=== PATIENT | female | born 1970 | race Hispanic/Latino ===

== ENCOUNTER 2019-09-12 14:06 | Emergency (ER) | payer BC ==
[~2019-09-12] VITALS: Ht 167.6 cm; Wt 78.9 kg
[2019-09-12 15:11] LABS: BILIRUBIN,URINE NEGATIVE (NEGATIVE); CLARITY,URINE SL CLOUDY (CLEAR); COLOR,URINE YELLOW (YELLOW); KETONES,URINE NEGATIVE (NEGATIVE); LEUKOCYTE ESTERASE ,URINE NEGATIVE (NEGATIVE); NITRITE,URINE NEGATIVE (NEGATIVE); PREGNANCY TEST, URINE NEGATIVE (NEGATIVE); PROTEIN,URINE DIPSTICK NEGATIVE (NEGATIVE); URINE UROBILINOGEN 0.2 mg/dL (0.2 - 1)
[2019-09-12 15:23] LABS: BACTERIA,URINE FEW /HPF; EPITHELIAL CELLS,URINE FEW /LPF
[2019-09-12] MEDS ORDERED: SODIUM CHLORIDE 0.9% 1000ML 1,000 ML IV STA (15:26)
[2019-09-12] MEDS ORDERED: ONDANSETRON HCL INJ 2MG/ML 2ML 2 MG/ML VIAL IV STA (15:26)
[2019-09-12 16:13] LABS: BASOPHILS # (AUTO) 0.1 (0.0-0.1); BASOPHILS % 0.5 % (0.0-1.0); EOSINOPHILS # (AUTO) 0.2 (0.0-0.4); EOSINOPHILS % 1.4 % (0.0-6.0); HEMATOCRIT 44.7 % (34.2-44.1); LYMPHOCYTES # (AUTO) 4.8 (1.0-3.2); MEAN CORPUSCULAR HGB CONC 35.8 g/dL (31-35); MEAN CORPUSCULAR VOLUME 86.6 fL (81-99); MONOCYTES # (AUTO) 0.8 (0.2-0.8); MONOCYTES % 7.8 % (4.4-11.3); NEUTROPHILS % 46.1 % (38.7-80.0); PLATELET COUNT 265 x10e3/uL (140-360); RED BLOOD COUNT 5.16 x10e6/uL (3.6-5.1); RED CELL DISTRIBUTION WIDTH 11.8 % (11.7-14.4)
[2019-09-12 16:25] LABS: ANION GAP 11.5 mmol/L (8-16); BLOOD UREA NITROGEN 7 mg/dL (7-26); BUN/CREATININE RATIO 9 (6-25); CALCIUM 8.8 mg/dL (8.4-10.2); CARBON DIOXIDE 24 mmol/L (22-29); CHLORIDE 106 mmol/L (98-107); CREATININE, SERUM 0.74 mg/dL (0.57-1.11); EST GLOMERULAR FILTRATION RATE > 60 ML/MIN (60-); GLUCOSE 234 mg/dL (74-118); POTASSIUM 3.5 mmol/L (3.5-5.1); SODIUM 138 mmol/L (136-145)
[2019-09-12] MEDS ORDERED: IOPAMIDOL 370 MG/ML 200 ML INFUS..BTL INJ ONE (18:02)
[2019-09-12] MEDS ORDERED: SODIUM CHLORIDE 0.9% 50ML 50 ML ONE (18:02)
--- NOTE | 2019-09-12 18:29 | Diagnostic Imaging Report ---
EXAM: CT Abdomen and Pelvis WITH contrast INDICATION: abd pain COMPARISON: None. TECHNIQUE: Abdomen and pelvis were scanned utilizing a multidetector helical scanner from the lung base to the pubic symphysis after administration of IV contrast. Coronal and sagittal reformations were obtained. Dose modulation, iterative reconstruction, and/or weight based adjustment of the mA/kV was utilized to reduce the radiation dose to as low as reasonably achievable. Routine protocol was performed. Scan was performed when during portal venous phase. IV CONTRAST: 150 mL of Omnipaque 300 ORAL CONTRAST: Water COMPLICATIONS: None RADIATION DOSE: Total DLP: 832.62 mGy-cm Estimated effective dose: (DLP x 0.015 x size factor) mSv CTDIvol has been reviewed. It is below the limits set by the Radiation Protocol Committee (RPC). FINDINGS: LINES and TUBES: None. LOWER THORAX: There is bibasilar atelectasis. HEPATOBILIARY: The liver is diffuse hypodense compared to the spleen, consistent with diffuse hepatic diffuse hepatic steatosis. No focal hepatic lesions. No biliary ductal dilation. GALLBLADDER: There are cholecystectomy clips. SPLEEN: No splenomegaly. PANCREAS: No focal masses or ductal dilatation. ADRENALS: No adrenal nodules KIDNEYS/URETERS: Kidneys enhance symmetrically. No hydronephrosis. No cystic or solid mass lesions. No stones. GI TRACT: No abnormal distention, or evidence of bowel obstruction. There is mild wall thickening of distal sigmoid colon and rectum likely infectious or inflammatory. Appendix is normal. PELVIC ORGANS/BLADDER: Mild bladder wall thickening likely due to cystitis. LYMPH NODES: No lymphadenopathy. VESSELS: Unremarkable. PERITONEUM / RETROPERITONEUM: No free air or fluid. BONES: Unremarkable. SOFT TISSUES: Unremarkable. IMPRESSION: 1. Mild wall thickening of distal sigmoid colon and rectum likely infectious or inflammatory. Recommend follow-up CT to assess resolution and exclude other causes. 2. Bladder wall thickening likely due to cystitis. Signed by: Greyson Cr MD on 09/12/2019 6:26 PM
== END 2019-09-12 19:30 | disposition home or self-care (01) ==
LOC: ER 14:06
DX: R10.11 Right upper quadrant pain (principal); R10.13 Epigastric pain; R11.2 Nausea with vomiting, unspecified; K52.9 Noninfective gastroenteritis and colitis, unspecified; K50.10 Crohn's disease of large intestine without complications; E11.9 Type 2 diabetes mellitus without complications
CPT/HCPCS: 36415; 74177; 80048; 81001; 81025; 83690; 85025; 99281; Q9967

== ENCOUNTER 2021-03-24 16:25 | Emergency (ER) | payer SELFPAY ==
[~2021-03-24] VITALS: Ht 170.2 cm; Wt 70.3 kg
[2021-03-24] MEDS ORDERED: ONDANSETRON HCL INJ 2MG/ML 2ML 2 MG/ML VIAL IV STA (16:41)
[2021-03-24] MEDS ORDERED: SODIUM CHLORIDE 0.9% 1000ML 1,000 ML IV SCH (16:45)
[2021-03-24 16:57] LABS: BASOPHILS % 0.2 % (0.0-1.0); HEMOGLOBIN 16.4 g/dL (12.0-16.0); LYMPHOCYTES # (AUTO) 2.4 (1.0-3.2); MEAN CORPUSCULAR HEMOGLOBIN 30.2 pg (28-32); MEAN CORPUSCULAR HGB CONC 34.9 g/dL (31-35); MEAN CORPUSCULAR VOLUME 86.6 fL (81-99); MONOCYTES # (AUTO) 0.3 (0.2-0.8); MONOCYTES % 3.2 % (4.4-11.3); NEUTROPHILS # (AUTO) 5.6 (2.1-6.9); NEUTROPHILS % 67.2 % (38.7-80.0); PLATELET COUNT 154 x10e3/uL (140-360); RED BLOOD COUNT 5.43 x10e6/uL (3.6-5.1); RED CELL DISTRIBUTION WIDTH 11.9 % (11.7-14.4)
[2021-03-24 17:14] LABS: MAGNESIUM 1.6 MG/DL (1.3-2.1)
[2021-03-24 17:15] LABS: ALBUMIN 3.3 g/dL (3.5-5.0); ALBUMIN/GLOBULIN RATIO 0.8 (0.8-2.0); ANION GAP 21.3 mmol/L (8-16); CALCIUM 8.5 mg/dL (8.4-10.2); CREATININE, SERUM 0.91 mg/dL (0.57-1.11); POTASSIUM 3.3 mmol/L (3.5-5.1)
[2021-03-24 17:17] LABS: CREATINE KINASE 32 IU/L (29-168)
[2021-03-24 17:26] LABS: BAND NEUTROPHILS % (MANUAL) 2 %; LYMPHOCYTES % (MANUAL) 20 % (19-48); MONOCYTES % (MANUAL) 6 % (3.4-9.0); NEUTROPHILS % (MANUAL) 67 % (40-74); PLATELET ESTIMATE ADEQUATE; PLATELET MORPHOLOGY COMMENT NORMAL; RBC MORPHOLOGY COMMENT NORMAL
[2021-03-24 17:42] LABS: ABG HCO3 20 mmol/L (22-26); ABG PCO2 29 mmHg (35-45); ABG PH 7.46 (7.35-7.45); ABG PO2 65 mmHg (80-105); ABG TCO2 21
[2021-03-24 18:19] LABS: CLARITY,URINE HAZY (CLEAR); COLOR,URINE YELLOW (YELLOW)
[2021-03-24 18:21] LABS: LEUKOCYTE ESTERASE ,URINE TRACE (NEGATIVE); NITRITE,URINE POSITIVE (NEGATIVE); PROTEIN,URINE DIPSTICK 2+ (NEGATIVE)
[2021-03-24 18:22] LABS: KETONES,URINE >=160 (NEGATIVE); URINE UROBILINOGEN 1 mg/dL (0.2 - 1); WBC,URINE (MAN) >50 /HPF (0-5)
[2021-03-24 18:23] LABS: AMORPHOUS SEDIMENT,URINE FEW (FEW); AMPHETAMINES SCREEN,URINE NEGATIVE (NEGATIVE); BACTERIA,URINE MANY /HPF; EPITHELIAL CELLS,URINE FEW /LPF; MUCUS,URINE MODERATE (RARE); PHENCYCLIDINE SCREEN,URINE NEGATIVE (NEGATIVE); RBC,URINE 21-50 /HPF (0-5)
[2021-03-24 18:24] LABS: BENZODIAZEPINES SCREEN,URINE NEGATIVE (NEGATIVE)
== END 2021-03-24 18:31 | disposition home or self-care (01) ==
LOC: ER 16:54
DX: R05 Cough (principal); R11.2 Nausea with vomiting, unspecified; U07.1 COVID-19; E11.65 Type 2 diabetes mellitus with hyperglycemia
CPT/HCPCS: 36415; 36600; 71045; 80053; 80307; 81001; 82550; 82553; 82805; 83735; 84484; 84702; 85025; 93005; 99284; J2405; J7030; U0002

== ENCOUNTER 2021-03-30 23:57 | Inpatient (IN) | payer BC, OTHER ==
[~2021-03-30] VITALS: Ht 165.1 cm; Wt 74.4 kg
[~2021-03-30 23:57] MED LIST: STROMECTOL3 MG PO
[2021-03-31] MEDS ORDERED: CEFTRIAXONE 2 GM in SODIUM CHLORIDE 0.9% 100 ML IV ONE (00:15)
[2021-03-31] MEDS ORDERED: DEXAMETHASONE SOD PHOS 10 MG/1 ML VIAL IV ONE (00:15)
[2021-03-31] MEDS ORDERED: DEXAMETHASONE SOD PHOS 10 MG/1 ML VIAL ONE (00:23)
[2021-03-31 00:36] LABS: BASOPHILS % 0.3 % (0.0-1.0); HEMATOCRIT 44.2 % (34.2-44.1); LYMPHOCYTES # (AUTO) 1.4 (1.0-3.2); LYMPHOCYTES % 12.3 % (18.0-39.1); MEAN CORPUSCULAR HEMOGLOBIN 30.1 pg (28-32); MEAN CORPUSCULAR HGB CONC 36.2 g/dL (31-35); MEAN CORPUSCULAR VOLUME 83.2 fL (81-99); MONOCYTES # (AUTO) 0.3 (0.2-0.8); MONOCYTES % 2.4 % (4.4-11.3); NEUTROPHILS # (AUTO) 9.9 (2.1-6.9); NEUTROPHILS % 84.2 % (38.7-80.0); PLATELET COUNT 210 x10e3/uL (140-360); RED BLOOD COUNT 5.31 x10e6/uL (3.6-5.1); RED CELL DISTRIBUTION WIDTH 11.6 % (11.7-14.4)
[2021-03-31 00:45] LABS: ALBUMIN 2.8 g/dL (3.5-5.0); ALBUMIN/GLOBULIN RATIO 0.6 (0.8-2.0); ANION GAP 18.9 mmol/L (8-16); CALCIUM 8.7 mg/dL (8.4-10.2); CREATININE, SERUM 0.81 mg/dL (0.57-1.11)
[2021-03-31 00:49] LABS: POTASSIUM 2.9 mmol/L (3.5-5.1)
[2021-03-31] MEDS ORDERED: POTASSIUM CHLORIDE 20 MEQ TAB CR PO STA (00:49)
[2021-03-31 00:53] LABS: CREATINE KINASE MB 1.1 ng/mL (0-5.0)
[2021-03-31] MEDS ORDERED: ASPIRIN 81 MG CHEW TAB PO ONE (02:15)
[2021-03-31] MEDS ORDERED: ONDANSETRON HCL INJ 2MG/ML 2ML 2 MG/ML VIAL IV PRN (02:15)
[2021-03-31] MEDS ORDERED: SODIUM CHLORIDE FLUSH 10 ML SYR INJ PRN (02:15)
[2021-03-31] MEDS ORDERED: REMDESIVIR IV ONE (02:50)
[2021-03-31] MEDS ORDERED: SODIUM CHLORIDE 0.9% 250ML 250 ML ONE (02:56)
[2021-03-31] MEDS ORDERED: REMDESIVIR 200MG 200 MG IV SCH (03:12)
[2021-03-31 05:45] LABS: BASOPHILS % 0.3 % (0.0-1.0); HEMATOCRIT 41.8 % (34.2-44.1); HEMOGLOBIN 14.6 g/dL (12.0-16.0); LYMPHOCYTES # (AUTO) 0.5 (1.0-3.2); LYMPHOCYTES % 5.8 % (18.0-39.1); MEAN CORPUSCULAR HEMOGLOBIN 29.9 pg (28-32); MEAN CORPUSCULAR HGB CONC 34.9 g/dL (31-35); MEAN CORPUSCULAR VOLUME 85.7 fL (81-99); MONOCYTES # (AUTO) 0.2 (0.2-0.8); MONOCYTES % 3.1 % (4.4-11.3); NEUTROPHILS % 90.2 % (38.7-80.0); PLATELET COUNT 141 x10e3/uL (140-360); RED BLOOD COUNT 4.88 x10e6/uL (3.6-5.1); RED CELL DISTRIBUTION WIDTH 11.8 % (11.7-14.4)
[2021-03-31 06:07] LABS: ALBUMIN 2.5 g/dL (3.5-5.0); ALBUMIN/GLOBULIN RATIO 0.6 (0.8-2.0); ANION GAP 18.9 mmol/L (8-16); CREATININE, SERUM 0.67 mg/dL (0.57-1.11); POTASSIUM 3.9 mmol/L (3.5-5.1)
[2021-03-31] MEDS: ACETAMINOPHEN 325 MG TAB PO PRN (07:15)
[2021-03-31] MEDS ORDERED: DEXAMETHASONE SOD PHOS 10 MG/1 ML VIAL IV SCH (09:00)
[2021-03-31] MEDS: ENOXAPARIN 30 MG/0.3 ML SYR SC SCH ×2 (09:51→17:18)
[2021-03-31] MEDS: ASCORBIC ACID 500 MG TAB PO SCH ×2 (09:51→17:18)
[2021-03-31] MEDS: ZINC SULFATE 50 MG CAP PO SCH (09:51)
[2021-03-31] MEDS ORDERED: DEXTROSE 50% SYRINGE 50 ML IV PRN (12:00)
[2021-03-31] MEDS ORDERED: GUAIFENESIN/CODEINE 5 ML LIQD PO PRN (12:00)
[2021-03-31] MEDS ORDERED: INSULIN GLARGINE 100 UNITS/ML VIAL SQ ONE (12:30)
[2021-03-31] MEDS: DEXMEDETOMIDINE 400MCG/NS100ML 100 ML IV SCH (14:55)
[2021-03-31] MEDS: BENZONATATE 100 MG CAP PO SCH ×2 (14:55→20:07)
[2021-03-31] MEDS ORDERED: SODIUM CHLORIDE 0.9% 50ML 50 ML ONE (16:36)
[2021-03-31] MEDS ORDERED: IOPAMIDOL 370 MG/ML 200 ML INFUS..BTL INJ ONE (16:36)
[2021-03-31] MEDS: INSULIN LISPRO 100 UNIT/1 ML 3ML VIAL SQ SCH ×2 (17:12→20:07)
[2021-03-31] MEDS: CEFTRIAXONE 2 GM in SODIUM CHLORIDE 0.9% 100 ML IV SCH (19:55)
[2021-03-31] MEDS: INSULIN GLARGINE 100 UNITS/ML VIAL SQ SCH ×2 (20:07→20:12)
[2021-03-31] MEDS ORDERED: ENOXAPARIN SOD INJ 40 MG/0.4 ML SYR SC STA (20:37)
[2021-03-31] MEDS ORDERED: ENOXAPARIN INJ 80 MG/0.8 ML SYR SC SCH (21:00)
[2021-03-31] MEDS ORDERED: GABAPENTIN100 MG PO (22:53)
[2021-04-01 02:24] LABS: CREATINE KINASE MB 0.6 ng/mL (0-5.0)
[2021-04-01] MEDS: DEXMEDETOMIDINE 400MCG/NS100ML 100 ML IV SCH ×2 (06:07→13:30)
[2021-04-01 06:28] LABS: BASOPHILS % 0.2 % (0.0-1.0); HEMATOCRIT 40.3 % (34.2-44.1); HEMOGLOBIN 14.2 g/dL (12.0-16.0); LYMPHOCYTES # (AUTO) 1.3 (1.0-3.2); LYMPHOCYTES % 11.9 % (18.0-39.1); MEAN CORPUSCULAR HGB CONC 35.2 g/dL (31-35); MEAN CORPUSCULAR VOLUME 85.2 fL (81-99); MONOCYTES # (AUTO) 0.2 (0.2-0.8); MONOCYTES % 2.2 % (4.4-11.3); NEUTROPHILS # (AUTO) 9.1 (2.1-6.9); PLATELET COUNT 143 x10e3/uL (140-360); RED BLOOD COUNT 4.73 x10e6/uL (3.6-5.1); RED CELL DISTRIBUTION WIDTH 11.6 % (11.7-14.4)
[2021-04-01 07:20] LABS: ALBUMIN 2.3 g/dL (3.5-5.0); ALBUMIN/GLOBULIN RATIO 0.6 (0.8-2.0); ANION GAP 14.4 mmol/L (8-16); CALCIUM 7.8 mg/dL (8.4-10.2); CREATININE, SERUM 0.55 mg/dL (0.57-1.11); POTASSIUM 3.4 mmol/L (3.5-5.1)
[2021-04-01] MEDS: DEXAMETHASONE SOD PHOS 10 MG/1 ML VIAL IV SCH (08:41)
[2021-04-01] MEDS: ENOXAPARIN INJ 80 MG/0.8 ML SYR SC SCH ×2 (08:41→20:34)
[2021-04-01] MEDS: ASCORBIC ACID 500 MG TAB PO SCH ×2 (08:41→18:08)
[2021-04-01] MEDS: BENZONATATE 100 MG CAP PO SCH ×3 (08:41→20:34)
[2021-04-01] MEDS: ZINC SULFATE 50 MG CAP PO SCH (08:41)
[2021-04-01] MEDS: INSULIN LISPRO 100 UNIT/1 ML 3ML VIAL SQ SCH ×4 (08:42→21:00)
[2021-04-01] MEDS: BARICITINIB 2 MG TABLET PO SCH (08:52)
[2021-04-01] MEDS ORDERED: DEXAMETHASONE SOD PHOS 10 MG/1 ML VIAL IV SCH (09:00)
[2021-04-01] MEDS ORDERED: INSULIN GLARGINE 100 UNITS/ML VIAL SQ ONE (10:30)
[2021-04-01] MEDS ORDERED: POTASSIUM CHLORIDE 10MEQ EA PO ONE (10:30)
[2021-04-01] MEDS ORDERED: SODIUM CHLORIDE 0.9% 50ML 50 ML ONE (12:17)
[2021-04-01] MEDS ORDERED: IOPAMIDOL 370 MG/ML 200 ML INFUS..BTL INJ ONE (12:17)
[2021-04-01] MEDS ORDERED: REMDESIVIR 100MG 100 MG IV SCH (14:00)
[2021-04-01] MEDS: ACETAMINOPHEN 325 MG TAB PO PRN (18:24)
[2021-04-01] MEDS: CEFTRIAXONE 2 GM in SODIUM CHLORIDE 0.9% 100 ML IV SCH (20:34)
[2021-04-01] MEDS: INSULIN GLARGINE 100 UNITS/ML VIAL SQ SCH (21:09)
[2021-04-02] VITALS (21 sets, daily range): BP systolic 93–140; BP diastolic 57–100
[2021-04-02] MEDS ORDERED: METFORMIN HCL500 MG PO (05:00)
[2021-04-02] MEDS ORDERED: REGLAN5 MG PO (05:00)
[2021-04-02] MEDS ORDERED: DICYCLOMINE HCL10 MG PO (05:00)
[2021-04-02] MEDS ORDERED: SUCRALFATE1 GM PO (05:00)
[2021-04-02 06:20] LABS: BASOPHILS % 0.1 % (0.0-1.0); EOSINOPHILS % 0.1 % (0.0-6.0); HEMATOCRIT 42.3 % (34.2-44.1); HEMOGLOBIN 14.9 g/dL (12.0-16.0); LYMPHOCYTES # (AUTO) 2.1 (1.0-3.2); LYMPHOCYTES % 14.2 % (18.0-39.1); MEAN CORPUSCULAR HEMOGLOBIN 30.2 pg (28-32); MEAN CORPUSCULAR HGB CONC 35.2 g/dL (31-35); MEAN CORPUSCULAR VOLUME 85.6 fL (81-99); MONOCYTES # (AUTO) 0.5 (0.2-0.8); MONOCYTES % 3.7 % (4.4-11.3); NEUTROPHILS # (AUTO) 11.9 (2.1-6.9); NEUTROPHILS % 80.9 % (38.7-80.0); PLATELET COUNT 173 x10e3/uL (140-360); RED BLOOD COUNT 4.94 x10e6/uL (3.6-5.1); RED CELL DISTRIBUTION WIDTH 11.8 % (11.7-14.4)
[2021-04-02 06:50] LABS: ALBUMIN 2.4 g/dL (3.5-5.0); ALBUMIN/GLOBULIN RATIO 0.6 (0.8-2.0); ANION GAP 14.2 mmol/L (8-16); CALCIUM 8.2 mg/dL (8.4-10.2); CREATININE, SERUM 0.53 mg/dL (0.57-1.11); POTASSIUM 3.2 mmol/L (3.5-5.1)
[2021-04-02] MEDS: INSULIN LISPRO 100 UNIT/1 ML 3ML VIAL SQ SCH ×4 (07:30→20:46)
[2021-04-02] MEDS: DEXAMETHASONE SOD PHOS 10 MG/1 ML VIAL IV SCH (08:16)
[2021-04-02] MEDS: ENOXAPARIN INJ 80 MG/0.8 ML SYR SC SCH ×2 (08:17→20:45)
[2021-04-02] MEDS: ZINC SULFATE 50 MG CAP PO SCH (08:17)
[2021-04-02] MEDS: ASCORBIC ACID 500 MG TAB PO SCH ×2 (08:17→17:03)
[2021-04-02] MEDS: BARICITINIB 2 MG TABLET PO SCH (08:17)
[2021-04-02] MEDS: BENZONATATE 100 MG CAP PO SCH ×3 (08:17→20:45)
[2021-04-02] MEDS ORDERED: POTASSIUM CHLORIDE 20MEQ/100ML 200 ML IV ONE (11:00)
[2021-04-02] MEDS ORDERED: POTASSIUM CHLORIDE 20 MEQ TAB CR PO ONE (11:15)
[2021-04-02] MEDS ORDERED: DEXMEDETOMIDINE 400MCG/NS100ML 100 ML IV PRN (12:45)
[2021-04-02] MEDS: CEFTRIAXONE 2 GM in SODIUM CHLORIDE 0.9% 100 ML IV SCH (19:51)
[2021-04-02] MEDS: INSULIN GLARGINE 100 UNITS/ML VIAL SQ SCH (20:47)
[2021-04-03] VITALS (24 sets, daily range): BP systolic 91–143; BP diastolic 58–101
[2021-04-03 05:37] LABS: BASOPHILS % 0.2 % (0.0-1.0); EOSINOPHILS % 0.1 % (0.0-6.0); HEMATOCRIT 42.8 % (34.2-44.1); HEMOGLOBIN 14.7 g/dL (12.0-16.0); LYMPHOCYTES # (AUTO) 2.1 (1.0-3.2); LYMPHOCYTES % 15.1 % (18.0-39.1); MEAN CORPUSCULAR HEMOGLOBIN 29.7 pg (28-32); MEAN CORPUSCULAR HGB CONC 34.3 g/dL (31-35); MEAN CORPUSCULAR VOLUME 86.5 fL (81-99); MONOCYTES # (AUTO) 0.7 (0.2-0.8); MONOCYTES % 5.4 % (4.4-11.3); NEUTROPHILS # (AUTO) 10.6 (2.1-6.9); NEUTROPHILS % 78.1 % (38.7-80.0); PLATELET COUNT 166 x10e3/uL (140-360); RED BLOOD COUNT 4.95 x10e6/uL (3.6-5.1); RED CELL DISTRIBUTION WIDTH 11.9 % (11.7-14.4)
[2021-04-03 06:01] LABS: ALBUMIN 2.4 g/dL (3.5-5.0); ALBUMIN/GLOBULIN RATIO 0.6 (0.8-2.0); ANION GAP 14.7 mmol/L (8-16); CALCIUM 8.3 mg/dL (8.4-10.2); CREATININE, SERUM 0.54 mg/dL (0.57-1.11); POTASSIUM 3.7 mmol/L (3.5-5.1)
[2021-04-03] MEDS: INSULIN LISPRO 100 UNIT/1 ML 3ML VIAL SQ SCH ×4 (07:18→20:39)
[2021-04-03] MEDS: BARICITINIB 2 MG TABLET PO SCH (09:11)
[2021-04-03] MEDS: BENZONATATE 100 MG CAP PO SCH ×3 (09:11→20:36)
[2021-04-03] MEDS: ZINC SULFATE 50 MG CAP PO SCH (09:11)
[2021-04-03] MEDS: ASCORBIC ACID 500 MG TAB PO SCH ×2 (09:11→16:13)
[2021-04-03] MEDS: ENOXAPARIN INJ 80 MG/0.8 ML SYR SC SCH ×2 (09:33→20:36)
[2021-04-03] MEDS: DEXAMETHASONE SOD PHOS 10 MG/1 ML VIAL IV SCH (09:33)
[2021-04-03] MEDS: INSULIN GLARGINE 100 UNITS/ML VIAL SQ SCH (20:37)
[2021-04-04] VITALS (16 sets, daily range): BP systolic 93–117; BP diastolic 54–88
[2021-04-04 05:22] LABS: BASOPHILS % 0.2 % (0.0-1.0); EOSINOPHILS % 0.1 % (0.0-6.0); HEMATOCRIT 40.2 % (34.2-44.1); LYMPHOCYTES # (AUTO) 1.8 (1.0-3.2); LYMPHOCYTES % 11.4 % (18.0-39.1); MEAN CORPUSCULAR HEMOGLOBIN 30.2 pg (28-32); MEAN CORPUSCULAR HGB CONC 34.8 g/dL (31-35); MEAN CORPUSCULAR VOLUME 86.8 fL (81-99); MONOCYTES % 6.5 % (4.4-11.3); NEUTROPHILS # (AUTO) 12.9 (2.1-6.9); NEUTROPHILS % 80.9 % (38.7-80.0); PLATELET COUNT 175 x10e3/uL (140-360); RED BLOOD COUNT 4.63 x10e6/uL (3.6-5.1)
[2021-04-04 05:45] LABS: ALBUMIN 2.3 g/dL (3.5-5.0); ALBUMIN/GLOBULIN RATIO 0.6 (0.8-2.0); ANION GAP 13.6 mmol/L (8-16); CALCIUM 8.6 mg/dL (8.4-10.2); CREATININE, SERUM 0.55 mg/dL (0.57-1.11); POTASSIUM 3.6 mmol/L (3.5-5.1)
[2021-04-04] MEDS: INSULIN LISPRO 100 UNIT/1 ML 3ML VIAL SQ SCH ×4 (08:42→22:35)
[2021-04-04] MEDS: ENOXAPARIN INJ 80 MG/0.8 ML SYR SC SCH (08:43)
[2021-04-04] MEDS: ZINC SULFATE 50 MG CAP PO SCH (08:43)
[2021-04-04] MEDS: BENZONATATE 100 MG CAP PO SCH ×3 (08:43→22:35)
[2021-04-04] MEDS: ASCORBIC ACID 500 MG TAB PO SCH ×2 (08:43→16:04)
[2021-04-04] MEDS: DEXAMETHASONE SOD PHOS 10 MG/1 ML VIAL IV SCH (08:43)
[2021-04-04] MEDS: APIXABAN 5 MG TABLET PO SCH (16:04)
[2021-04-04] MEDS: INSULIN GLARGINE 100 UNITS/ML VIAL SQ SCH (22:36)
[2021-04-05] VITALS (9 sets, daily range): BP systolic 96–115; BP diastolic 60–86
[2021-04-05 06:06] LABS: BASOPHILS % 0.2 % (0.0-1.0); EOSINOPHILS % 0.1 % (0.0-6.0); HEMOGLOBIN 13.7 g/dL (12.0-16.0); LYMPHOCYTES # (AUTO) 1.6 (1.0-3.2); LYMPHOCYTES % 8.7 % (18.0-39.1); MEAN CORPUSCULAR HEMOGLOBIN 30.3 pg (28-32); MEAN CORPUSCULAR HGB CONC 34.3 g/dL (31-35); MEAN CORPUSCULAR VOLUME 88.5 fL (81-99); MONOCYTES # (AUTO) 1.4 (0.2-0.8); MONOCYTES % 7.5 % (4.4-11.3); NEUTROPHILS % 82.2 % (38.7-80.0); PLATELET COUNT 214 x10e3/uL (140-360); RED BLOOD COUNT 4.52 x10e6/uL (3.6-5.1)
[2021-04-05 06:33] LABS: ALBUMIN 2.3 g/dL (3.5-5.0); ALBUMIN/GLOBULIN RATIO 0.5 (0.8-2.0); ANION GAP 12.4 mmol/L (8-16); CALCIUM 8.4 mg/dL (8.4-10.2); CREATININE, SERUM 0.55 mg/dL (0.57-1.11); POTASSIUM 3.4 mmol/L (3.5-5.1)
[2021-04-05] MEDS: INSULIN LISPRO 100 UNIT/1 ML 3ML VIAL SQ SCH ×7 (08:54→21:22)
[2021-04-05] MEDS: ASCORBIC ACID 500 MG TAB PO SCH ×2 (08:57→17:35)
[2021-04-05] MEDS: DEXAMETHASONE SOD PHOS 10 MG/1 ML VIAL IV SCH (08:57)
[2021-04-05] MEDS: BENZONATATE 100 MG CAP PO SCH ×3 (08:57→20:50)
[2021-04-05] MEDS: APIXABAN 5 MG TABLET PO SCH ×2 (08:57→17:35)
[2021-04-05] MEDS: ZINC SULFATE 50 MG CAP PO SCH (08:58)
[2021-04-05] MEDS ORDERED: ALPRAZOLAM 0.25 MG TAB PO PRN (09:00)
[2021-04-05] MEDS ORDERED: ALPRAZOLAM 0.5 MG TAB PO ONE (10:00)
[2021-04-05] MEDS: INSULIN GLARGINE 100 UNITS/ML VIAL SQ SCH (21:25)
[2021-04-06] VITALS (9 sets, daily range): BP systolic 95–121; BP diastolic 70–81
[2021-04-06 05:31] LABS: BASOPHILS % 0.2 % (0.0-1.0); EOSINOPHILS % 0.1 % (0.0-6.0); HEMATOCRIT 40.4 % (34.2-44.1); HEMOGLOBIN 13.6 g/dL (12.0-16.0); LYMPHOCYTES # (AUTO) 2.2 (1.0-3.2); LYMPHOCYTES % 13.6 % (18.0-39.1); MEAN CORPUSCULAR HGB CONC 33.7 g/dL (31-35); MEAN CORPUSCULAR VOLUME 89.2 fL (81-99); MONOCYTES # (AUTO) 1.2 (0.2-0.8); MONOCYTES % 7.4 % (4.4-11.3); NEUTROPHILS # (AUTO) 12.7 (2.1-6.9); NEUTROPHILS % 77.7 % (38.7-80.0); PLATELET COUNT 212 x10e3/uL (140-360); RED BLOOD COUNT 4.53 x10e6/uL (3.6-5.1); RED CELL DISTRIBUTION WIDTH 12.2 % (11.7-14.4)
[2021-04-06 06:01] LABS: ALBUMIN 2.4 g/dL (3.5-5.0); ALBUMIN/GLOBULIN RATIO 0.6 (0.8-2.0); ANION GAP 13.5 mmol/L (8-16); CALCIUM 8.7 mg/dL (8.4-10.2); CREATININE, SERUM 0.51 mg/dL (0.57-1.11); POTASSIUM 3.5 mmol/L (3.5-5.1)
[2021-04-06] MEDS: DEXAMETHASONE SOD PHOS 10 MG/1 ML VIAL IV SCH (09:08)
[2021-04-06] MEDS: INSULIN LISPRO 100 UNIT/1 ML 3ML VIAL SQ SCH ×7 (09:08→20:51)
[2021-04-06] MEDS: BENZONATATE 100 MG CAP PO SCH ×3 (09:08→21:40)
[2021-04-06] MEDS: APIXABAN 5 MG TABLET PO SCH ×2 (09:08→16:15)
[2021-04-06] MEDS: ASCORBIC ACID 500 MG TAB PO SCH ×2 (09:08→16:15)
[2021-04-06] MEDS: ZINC SULFATE 50 MG CAP PO SCH (09:08)
[2021-04-06] MEDS: INSULIN GLARGINE 100 UNITS/ML VIAL SQ SCH (20:52)
[2021-04-07] VITALS (9 sets, daily range): BP systolic 101–119; BP diastolic 76–84
[2021-04-07 06:39] LABS: BASOPHILS % 0.3 % (0.0-1.0); EOSINOPHILS % 0.1 % (0.0-6.0); HEMATOCRIT 40.7 % (34.2-44.1); HEMOGLOBIN 13.6 g/dL (12.0-16.0); LYMPHOCYTES # (AUTO) 2.6 (1.0-3.2); LYMPHOCYTES % 17.7 % (18.0-39.1); MEAN CORPUSCULAR HGB CONC 33.4 g/dL (31-35); MEAN CORPUSCULAR VOLUME 89.8 fL (81-99); MONOCYTES # (AUTO) 1.3 (0.2-0.8); MONOCYTES % 8.8 % (4.4-11.3); NEUTROPHILS # (AUTO) 10.6 (2.1-6.9); NEUTROPHILS % 71.7 % (38.7-80.0); PLATELET COUNT 234 x10e3/uL (140-360); RED BLOOD COUNT 4.53 x10e6/uL (3.6-5.1); RED CELL DISTRIBUTION WIDTH 12.4 % (11.7-14.4)
[2021-04-07 07:22] LABS: ALBUMIN 2.4 g/dL (3.5-5.0); ALBUMIN/GLOBULIN RATIO 0.6 (0.8-2.0); ANION GAP 12.5 mmol/L (8-16); CALCIUM 8.7 mg/dL (8.4-10.2); CREATININE, SERUM 0.53 mg/dL (0.57-1.11); POTASSIUM 3.5 mmol/L (3.5-5.1)
[2021-04-07] MEDS: INSULIN LISPRO 100 UNIT/1 ML 3ML VIAL SQ SCH ×7 (09:49→21:37)
[2021-04-07] MEDS: ZINC SULFATE 50 MG CAP PO SCH (09:50)
[2021-04-07] MEDS: BENZONATATE 100 MG CAP PO SCH ×3 (09:50→21:37)
[2021-04-07] MEDS: ASCORBIC ACID 500 MG TAB PO SCH ×2 (09:50→16:37)
[2021-04-07] MEDS: APIXABAN 5 MG TABLET PO SCH ×2 (09:50→16:37)
[2021-04-07] MEDS: DEXAMETHASONE SOD PHOS 10 MG/1 ML VIAL IV SCH (09:50)
[2021-04-07] MEDS: INSULIN GLARGINE 100 UNITS/ML VIAL SQ SCH (21:38)
[2021-04-08] VITALS: BP 141/67
[2021-04-08 04:00] VITALS: BP 123/83
[2021-04-08 08:00] VITALS: BP 125/88
[2021-04-08] MEDS: INSULIN LISPRO 100 UNIT/1 ML 3ML VIAL SQ SCH ×4 (08:12→11:32)
[2021-04-08] MEDS: ZINC SULFATE 50 MG CAP PO SCH (08:55)
[2021-04-08] MEDS: BENZONATATE 100 MG CAP PO SCH (08:55)
[2021-04-08] MEDS: APIXABAN 5 MG TABLET PO SCH (08:55)
[2021-04-08] MEDS: ASCORBIC ACID 500 MG TAB PO SCH (08:55)
[2021-04-08] MEDS ORDERED: SERTRALINE HCL 50 MG TAB PO SCH (09:00)
[2021-04-08] MEDS ORDERED: ONDANSETRON HCL 4 MG ORAL DISINTEGRATING TAB PO PRN (10:15)
[2021-04-08 11:30] VITALS: BP 109/73
== END 2021-04-08 13:30 | disposition home or self-care (01) | DRG 177 ==
LOC: ER 03-31 00:02 → ERHOLD 03-31 02:30 → ICU 04-02 02:57 → IMCU 04-04 12:01
PROVIDERS: ADMIT Internal Medicine; ATTEND Internal Medicine
PROC: 8E0ZXY6 Isolation (ICD-10-PCS; 2021-03-30)
PROC: 5A0945A Assistance with Respiratory Ventilation, 24-96 Consecutive Hours, High Flow/Velocity Cannula (ICD-10-PCS; principal; 2021-03-31)
PROC: 02HV33Z Insertion of Infusion Device into Superior Vena Cava, Percutaneous Approach (ICD-10-PCS; 2021-03-31)
PROC: XW043E5 Introduction of Remdesivir Anti-infective into Central Vein, Percutaneous Approach, New Technology Group 5 (ICD-10-PCS; 2021-03-31)
DX: U07.1 COVID-19 (principal); J12.82 Pneumonia due to coronavirus disease 2019; J96.01 Acute respiratory failure with hypoxia; I26.99 Other pulmonary embolism without acute cor pulmonale; J15.9 Unspecified bacterial pneumonia; E11.43 Type 2 diabetes mellitus with diabetic autonomic (poly)neuropathy; K31.84 Gastroparesis; Z79.899 Other long term (current) drug therapy; E87.6 Hypokalemia
CPT/HCPCS: 36415; 36569; 51700; 71045; 71260; 80053; 82550; 82553; 82948; 83036; 83605; 84484; 85025; 86140; 87040; 93005; 96372; 97139; 99285; J0456; J0696; J1100; J1650; J1815; J2405; J7050; Q9967; U0002

== ENCOUNTER 2024-02-11 08:33 | Emergency (ER) | payer OTHER ==
[~2024-02-11] VITALS: Ht 170.2 cm; Wt 81.6 kg
[~2024-02-11 08:33] MED LIST changes: +CLINDAMYCIN HC150 MG PO; +DICYCLOMINE HCL10 MG PO; +GABAPENTIN100 MG PO; +METFORMIN HCL500 MG PO; +REGLAN5 MG PO; +SUCRALFATE1 GM PO
[2024-02-11 08:42] VITALS: TEMP 98
[2024-02-11 09:22] LABS: INFLUENZAE A&B ANTIGEN (RAPID) NEGATIVE (NEGATIVE); RESPIRATORY SYNC. VIRUS NEGATIVE (NEGATIVE)
[2024-02-11] MEDS ORDERED: MUCINEX DM ER1 EACH PO (09:56)
[2024-02-11 10:00] VITALS: PULSE 72; RESP 15; O2SAT 100
== END 2024-02-11 12:07 | disposition home or self-care (01) ==
LOC: ER 08:38
DX: R05.9 Cough, unspecified (principal); I10 Essential (primary) hypertension; E11.9 Type 2 diabetes mellitus without complications; Z11.52 Encounter for screening for COVID-19; Z86.718 Personal history of other venous thrombosis and embolism
CPT/HCPCS: 71046; 87400; 87420; 99284; U0002